=== PATIENT | male | born 1960 | race Caucasian/White ===

== ENCOUNTER 2018-05-28 23:31 | Inpatient (IN) | payer OTHER ==
[~2018-05-28] VITALS: Ht 160 cm; Wt 60.8 kg
[2018-05-29] VITALS (8 sets, daily range): BP systolic 129–164; BP diastolic 76–87
[2018-05-29] MEDS ORDERED: KETOROLAC 30MG/ML VIAL IV STA (01:28)
[2018-05-29] MEDS ORDERED: SODIUM CHLORIDE 0.9% 1,000 ML IV ONE (01:28)
[2018-05-29 01:59] LABS: BASOPHILS % 0.8 % (0.0-2.0); EOSINOPHILS % 0.7 % (0.0-5.0); HEMOGLOBIN. 15.1 g/dL (14.0-18.0); LYMPHOCYTES % 17.1 % (20.0-50.0); MEAN CORPUSCULAR HEMOGLOBIN 31.4 pg (28.0-32.0); MEAN CORPUSCULAR VOLUME 91.4 fL (80.0-94.0); MONOCYTES % 7.3 % (2.0-8.0); NEUTROPHILS % 74.1 % (40.0-76.0); PLATELET 161 x1000/uL (130-400); RED BLOOD CELL COUNT 4.82 mill/uL (4.7-6.1); RED CELL DISTRIBUTION WIDTH 13.9 % (11.6-14.6)
[2018-05-29 02:03] LABS: CHLORIDE 99 mEq/L (98-107)
[2018-05-29 02:08] LABS: PARTIAL THROMBOPLASTIN TIME 25.6 sec (23.4-31.0); PROTHROMBIN TIME 10.1 sec (9.1-11.1)
[2018-05-29] MEDS ORDERED: ASPIRIN 325MG EC TABLET PO ONE (04:30)
[2018-05-29] MEDS ORDERED: ACETAMINOPHEN 650MG SUPP PR PRN (11:00)
[2018-05-29] MEDS ORDERED: ONDANSETRON 4MG ODT PO PRN (11:00)
[2018-05-29] MEDS ORDERED: NA PHOS,M-B/NA PHOS,DI-BA ENEMA 118ML PR PRN (11:00)
[2018-05-29] MEDS ORDERED: IPRATROPIUM/ALBUTEROL 0.5-3(2.5)MG/3ML NEB INH PRN (11:00)
[2018-05-29] MEDS ORDERED: MAGNESIUM/ALUMINUM HYDROXIDE/SIMETHICONE 30ML UDC PO PRN (11:00)
[2018-05-29] MEDS ORDERED: DIPHENHYDRAMINE 50MG/ML VIAL IV PRN (11:00)
[2018-05-29] MEDS ORDERED: DEXTROSE 50% WATER 50ML SYRINGE IV PRN (11:00)
[2018-05-29] MEDS: BLOOD SUGAR DIAGNOSTIC STRIP TEST SCH ×3 (12:20→21:40)
[2018-05-29] MEDS: INSULIN LISPRO 100 UNITS/ML SUBCUT SCH ×3 (12:42→21:51)
[2018-05-29 13:22] LABS: BASOPHILS % 0.8 % (0.0-2.0); EOSINOPHILS % 0.5 % (0.0-5.0); HEMATOCRIT. 42.8 % (42.0-52.0); HEMOGLOBIN. 14.5 g/dL (14.0-18.0); MEAN CORPUSCULAR HEMOGLOBIN 31.2 pg (28.0-32.0); MEAN CORPUSCULAR VOLUME 91.7 fL (80.0-94.0); MEAN PLATELET VOLUME 9.3 fl (7.4-10.4); MONOCYTES % 7.8 % (2.0-8.0); NEUTROPHILS % 65.9 % (40.0-76.0); PLATELET 164 x1000/uL (130-400); RED BLOOD CELL COUNT 4.66 mill/uL (4.7-6.1); RED CELL DISTRIBUTION WIDTH 13.8 % (11.6-14.6)
[2018-05-29] MEDS ORDERED: ASPI-1159 PO (13:45)
[2018-05-29] MEDS ORDERED: LISI1TAB9 PO (13:45)
[2018-05-29] MEDS: SODIUM CHLORIDE 0.9% 1,000 ML IV SCH (13:49)
[2018-05-29 14:29] LABS: CHLORIDE 103 mEq/L (98-107)
[2018-05-29 14:35] LABS: CLARITY URINE CLEAR (CLEAR); COLOR URINE YELLOW (YELLOW); KETONES URINE 1+ (NEGATIVE); LEUKOCYTE ESTERASE URINE NEGATIVE (NEGATIVE); NITRITE URINE NEGATIVE (NEGATIVE); OCCULT BLOOD URINE NEGATIVE (NEGATIVE); PROTEIN URINE NEGATIVE (NEGATIVE); SPECIFIC GRAVITY URINE 1.046 (1.005-1.030); UROBILINOGEN URINE 0.2 E.U./dL (0.2-1.0)
[2018-05-29 15:01] LABS: HEPATITIS B SURFACE ANTIGEN NEGATIVE
[2018-05-29 15:05] LABS: *AMPHETAMINES SCREEN URINE NEGATIVE (NEGATIVE); *BARBITURATES SCREEN URINE NEGATIVE (NEGATIVE); *BENZODIAZEPINES SCREEN URINE NEGATIVE (NEGATIVE)
[2018-05-29 15:06] LABS: *COCAINE SCREEN URINE NEGATIVE (NEGATIVE); METHADONE URINE SCREEN NEGATIVE (NEGATIVE); OPIATES URINE SCREEN NEGATIVE (NEGATIVE)
[2018-05-29 15:07] LABS: CANNABINOID URINE SCREEN NEGATIVE (NEGATIVE); PHENCYCLIDINE URINE SCREEN NEGATIVE (NEGATIVE)
[2018-05-29 15:30] LABS: HEPATITIS B CORE AB IGM NEGATIVE
[2018-05-29 15:31] LABS: HEPATITIS A AB IGM NEGATIVE (NEGATIVE)
[2018-05-29] MEDS: HYDROCODONE/ACETAMINOPHEN 5/325MG TABLET PO PRN (15:39)
[2018-05-29] MEDS: ACETAMINOPHEN 325MG TABLET PO PRN (21:31)
[2018-05-30] VITALS (11 sets, daily range): BP systolic 124–166; BP diastolic 65–86
[2018-05-30] MEDS: HYDROCODONE/ACETAMINOPHEN 5/325MG TABLET PO PRN ×3 (00:54→20:40)
[2018-05-30] MEDS: ACETAMINOPHEN 325MG TABLET PO PRN (04:08)
[2018-05-30] MEDS: BLOOD SUGAR DIAGNOSTIC STRIP TEST SCH ×4 (07:30→21:54)
[2018-05-30 07:52] LABS: CHLORIDE 106 mEq/L (98-107)
[2018-05-30] MEDS: INSULIN LISPRO 100 UNITS/ML SUBCUT SCH ×4 (08:00→21:54)
[2018-05-30 08:04] LABS: HDL CHOLESTEROL 17 mg/dL (40-59)
[2018-05-30 08:07] LABS: LDL CHOLESTEROL 36 mg/dL (5-100)
[2018-05-30] MEDS: ASPIRIN 81MG EC TABLET PO SCH (09:00)
[2018-05-30] MEDS: SODIUM CHLORIDE 0.9% 1,000 ML IV SCH (09:40)
[2018-05-30 11:35] LABS: BASOPHILS % 0.7 % (0.0-2.0); EOSINOPHILS % 0.1 % (0.0-5.0); HEMATOCRIT. 44.1 % (42.0-52.0); HEMOGLOBIN. 15.4 g/dL (14.0-18.0); LYMPHOCYTES % 16.2 % (20.0-50.0); MEAN CORPUSCULAR HEMOGLOBIN 31.2 pg (28.0-32.0); MEAN CORPUSCULAR VOLUME 89.6 fL (80.0-94.0); MEAN PLATELET VOLUME 8.8 fl (7.4-10.4); MONOCYTES % 8.1 % (2.0-8.0); NEUTROPHILS % 74.9 % (40.0-76.0); PLATELET 161 x1000/uL (130-400); RED BLOOD CELL COUNT 4.92 mill/uL (4.7-6.1); RED CELL DISTRIBUTION WIDTH 13.8 % (11.6-14.6)
[2018-05-30] MEDS: INSULIN GLARGINE UD 100 UNITS/ML SYR SUBCUT SCH (21:53)
[2018-05-31] VITALS (7 sets, daily range): BP systolic 124–160; BP diastolic 74–99
[2018-05-31] MEDS: SODIUM CHLORIDE 0.9% 1,000 ML IV SCH (03:16)
[2018-05-31 06:15] LABS: HEMOGLOBIN 14.9 g/dL (14.0-18.0); MEAN CORPUSCULAR HEMOGLOBIN 30.9 pg (28.0-32.0); MEAN CORPUSCULAR VOLUME 91.4 fL (80.0-94.0); PLATELET 164 x1000/uL (130-400); RED BLOOD CELL COUNT 4.82 mill/uL (4.7-6.1); RED CELL DISTRIBUTION WIDTH 13.4 % (11.6-14.6)
[2018-05-31 07:39] LABS: CHLORIDE 103 mEq/L (98-107)
[2018-05-31] MEDS: BLOOD SUGAR DIAGNOSTIC STRIP TEST SCH ×4 (07:57→21:39)
[2018-05-31] MEDS: LEVOTHYROXINE SODIUM 25MCG TABLET PO SCH (08:06)
[2018-05-31] MEDS: ASPIRIN 81MG EC TABLET PO SCH (08:06)
[2018-05-31] MEDS: HYDROCODONE/ACETAMINOPHEN 5/325MG TABLET PO PRN ×2 (08:07→17:51)
[2018-05-31] MEDS: INSULIN LISPRO 100 UNITS/ML SUBCUT SCH ×4 (08:08→21:50)
[2018-05-31] MEDS: INSULIN GLARGINE UD 100 UNITS/ML SYR SUBCUT SCH (21:49)
[2018-06-01] VITALS: BP 143/83
[2018-06-01] MEDS: HYDROCODONE/ACETAMINOPHEN 5/325MG TABLET PO PRN ×4 (00:32→23:35)
[2018-06-01 04:00] VITALS: BP 148/81
[2018-06-01] MEDS: LEVOTHYROXINE SODIUM 25MCG TABLET PO SCH (06:36)
[2018-06-01] MEDS: BLOOD SUGAR DIAGNOSTIC STRIP TEST SCH ×4 (06:57→21:32)
[2018-06-01] MEDS: INSULIN LISPRO 100 UNITS/ML SUBCUT SCH ×4 (06:59→21:32)
[2018-06-01 08:00] VITALS: BP 161/86
[2018-06-01] MEDS: ASPIRIN 81MG EC TABLET PO SCH (09:00)
[2018-06-01 12:00] VITALS: BP 145/79
[2018-06-01 16:00] VITALS: BP 169/88
[2018-06-01 20:00] VITALS: BP_SYST 125; BP_SYST 138; BP_DIAS 76; BP_DIAS 81
[2018-06-01] MEDS: INSULIN GLARGINE UD 100 UNITS/ML SYR SUBCUT SCH (21:28)
[2018-06-02] VITALS: BP 150/84
[2018-06-02 04:00] VITALS: BP 139/82
[2018-06-02] MEDS: LEVOTHYROXINE SODIUM 25MCG TABLET PO SCH (05:52)
[2018-06-02] MEDS: BLOOD SUGAR DIAGNOSTIC STRIP TEST SCH ×4 (05:58→21:52)
[2018-06-02] MEDS: HYDROCODONE/ACETAMINOPHEN 5/325MG TABLET PO PRN ×3 (05:58→21:52)
[2018-06-02 06:55] LABS: BASOPHILS % 0.7 % (0.0-2.0); EOSINOPHILS % 1.5 % (0.0-5.0); HEMATOCRIT. 43.9 % (42.0-52.0); HEMOGLOBIN. 15.2 g/dL (14.0-18.0); LYMPHOCYTES % 35.1 % (20.0-50.0); MEAN CORPUSCULAR HEMOGLOBIN 31.3 pg (28.0-32.0); MEAN CORPUSCULAR VOLUME 90.7 fL (80.0-94.0); MEAN PLATELET VOLUME 9.5 fl (7.4-10.4); MONOCYTES % 9.2 % (2.0-8.0); NEUTROPHILS % 53.5 % (40.0-76.0); PLATELET 185 x1000/uL (130-400); RED BLOOD CELL COUNT 4.85 mill/uL (4.7-6.1); RED CELL DISTRIBUTION WIDTH 13.4 % (11.6-14.6)
[2018-06-02] MEDS: INSULIN LISPRO 100 UNITS/ML SUBCUT SCH ×4 (07:15→21:54)
[2018-06-02 07:19] LABS: CHLORIDE 103 mEq/L (98-107)
[2018-06-02 08:00] VITALS: BP 159/81
[2018-06-02] MEDS: ASPIRIN 81MG EC TABLET PO SCH (08:31)
[2018-06-02 12:00] VITALS: BP 168/98
[2018-06-02 16:00] VITALS: BP 150/78
[2018-06-02 20:00] VITALS: BP 121/82
[2018-06-02] MEDS: INSULIN GLARGINE UD 100 UNITS/ML SYR SUBCUT SCH (21:55)
[2018-06-02] MEDS: POTASSIUM CHLORIDE 20MEQ TABLET SR PO SCH (22:04)
[2018-06-03] VITALS: BP 144/78
[2018-06-03 04:00] VITALS: BP 143/85
[2018-06-03] MEDS: BLOOD SUGAR DIAGNOSTIC STRIP TEST SCH ×4 (05:54→21:00)
[2018-06-03] MEDS: INSULIN LISPRO 100 UNITS/ML SUBCUT SCH ×4 (05:54→21:00)
[2018-06-03] MEDS: LEVOTHYROXINE SODIUM 25MCG TABLET PO SCH (05:54)
[2018-06-03 08:00] VITALS: BP 131/75
[2018-06-03] MEDS: POTASSIUM CHLORIDE 20MEQ TABLET SR PO SCH (10:31)
[2018-06-03] MEDS: LOSARTAN POTASSIUM 50 MG TABLET PO SCH ×2 (10:31→22:51)
[2018-06-03] MEDS: ASPIRIN 81MG EC TABLET PO SCH (10:31)
[2018-06-03 12:00] VITALS: BP 146/62
[2018-06-03 16:00] VITALS: BP 152/71
[2018-06-03 20:00] VITALS: BP 141/62
[2018-06-03] MEDS: ACETAMINOPHEN 325MG TABLET PO PRN (22:51)
[2018-06-03] MEDS: AMLODIPINE 2.5MG TABLET PO SCH (22:51)
[2018-06-03] MEDS: INSULIN GLARGINE UD 100 UNITS/ML SYR SUBCUT SCH (22:53)
[2018-06-04] VITALS: BP 112/64
[2018-06-04 04:00] VITALS: BP 120/73
[2018-06-04 05:10] LABS: HEMATOCRIT 43.9 % (42.0-52.0); HEMOGLOBIN 15.2 g/dL (14.0-18.0); MEAN CORPUSCULAR HEMOGLOBIN 31.7 pg (28.0-32.0); MEAN CORPUSCULAR VOLUME 91.7 fL (80.0-94.0); PLATELET 208 x1000/uL (130-400); RED BLOOD CELL COUNT 4.79 mill/uL (4.7-6.1); RED CELL DISTRIBUTION WIDTH 13.5 % (11.6-14.6)
[2018-06-04 06:33] LABS: CHLORIDE 103 mEq/L (98-107)
[2018-06-04] MEDS: BLOOD SUGAR DIAGNOSTIC STRIP TEST SCH ×4 (06:45→20:51)
[2018-06-04] MEDS: LEVOTHYROXINE SODIUM 25MCG TABLET PO SCH (06:48)
[2018-06-04] MEDS: INSULIN LISPRO 100 UNITS/ML SUBCUT SCH ×4 (06:49→20:52)
[2018-06-04 08:00] VITALS: BP 122/71
[2018-06-04] MEDS: POTASSIUM CHLORIDE 20MEQ TABLET SR PO SCH (08:24)
[2018-06-04] MEDS: LOSARTAN POTASSIUM 50 MG TABLET PO SCH ×2 (08:24→20:51)
[2018-06-04] MEDS: ASPIRIN 81MG EC TABLET PO SCH (08:24)
[2018-06-04] MEDS: AMLODIPINE 2.5MG TABLET PO SCH ×2 (08:25→20:51)
[2018-06-04 12:00] VITALS: BP 127/70
[2018-06-04 16:00] VITALS: BP 117/70
[2018-06-04] MEDS ORDERED: HYDROCODONE/ACETAMINOPHEN 5/325MG TABLET PO PRN (17:45)
[2018-06-04 20:00] VITALS: BP 122/68
[2018-06-04] MEDS: INSULIN GLARGINE UD 100 UNITS/ML SYR SUBCUT SCH (20:58)
[2018-06-05] VITALS: BP 113/80
[2018-06-05 04:00] VITALS: BP 125/69
[2018-06-05] MEDS: BLOOD SUGAR DIAGNOSTIC STRIP TEST SCH ×3 (06:12→16:45)
[2018-06-05] MEDS: INSULIN LISPRO 100 UNITS/ML SUBCUT SCH ×3 (06:12→17:15)
[2018-06-05] MEDS: LEVOTHYROXINE SODIUM 25MCG TABLET PO SCH (06:12)
[2018-06-05 08:00] VITALS: BP 105/61
[2018-06-05] MEDS: LOSARTAN POTASSIUM 50 MG TABLET PO SCH (09:00)
[2018-06-05] MEDS: AMLODIPINE 2.5MG TABLET PO SCH (09:00)
[2018-06-05] MEDS: ASPIRIN 81MG EC TABLET PO SCH (09:15)
[2018-06-05] MEDS: POTASSIUM CHLORIDE 20MEQ TABLET SR PO SCH (09:15)
[2018-06-05 12:00] VITALS: BP 110/68
[2018-06-05 16:00] VITALS: BP 125/83
[2018-06-05 19:38] VITALS: BP 125/65
== END 2018-06-05 20:45 | DRG 64 ==
LOC: ER 23:31 → 6WST 05-29 06:18 → ENRESERV 05-29 08:18 → 5EST 05-29 14:17 → 5WST 05-31 23:47
PROVIDERS: ADMIT Internal Medicine; ATTEND Internal Medicine
PROC: 4A10X4Z Monitoring of Central Nervous Electrical Activity, External Approach (ICD-10-PCS; principal; 2018-05-30)
DX: I63.9 Cerebral infarction, unspecified (principal); G93.40 Encephalopathy, unspecified; N17.9 Acute kidney failure, unspecified; R17 Unspecified jaundice; E03.9 Hypothyroidism, unspecified; E11.65 Type 2 diabetes mellitus with hyperglycemia; I10 Essential (primary) hypertension; E78.5 Hyperlipidemia, unspecified; I27.20 Pulmonary hypertension, unspecified; M19.90 Unspecified osteoarthritis, unspecified site; M62.50 Muscle wasting and atrophy, not elsewhere classified, unspecified site; R74.0 Nonspecific elevation of levels of transaminase and lactic acid dehydrogenase [LDH]; R00.1 Bradycardia, unspecified; Z91.19 Patient's noncompliance with other medical treatment and regimen; Z79.899 Other long term (current) drug therapy
CPT/HCPCS: 36415; 70450; 70551; 71045; 76700; 80048; 80053; 80061; 80076; 80305; 81003; 82962; 83036; 83880; 84439; 84443; 84484; 85025; 85027; 85610; 85730; 86705; 86709; 86803; 87340; 92523; 92610; 93005; 93306; 93880; 93970; 96361; 96374; 97112; 97116; 97162; 97166; 99285; C1893; J1815; J1885; J7030